=== PATIENT | female | born 1950 | race Two or more races ===

== ENCOUNTER 2016-02-09 17:30 | Emergency (ER) | payer OTHER ==
[2016-02-09 17:34] VITALS: RESP 16; TEMP 98.2
--- NOTE | 2016-02-09 18:20 | EDPHY ---
H & P Stated Complaint: CP since Time Seen by Provider: 02/09/16 18:19 - Personal History Current Tetanus/Diphtheria Vaccine: Yes Current Tetanus Diphtheria and Acellular Pertussis (TDAP): Yes Tetanus Vaccine Date: 2009 - Medical/Surgical History Hx Asthma: No Hx Chronic Respiratory Disease: No Hx Diabetes: No Hx Cardiac Disease: Yes Hx Renal Disease: No Hx Cirrhosis: No Hx Alcoholism: No Hx HIV/AIDS: No Hx Splenectomy or Spleen Trauma: No Other PMH: Afib, ablation, pacemaker, CHF, HTN, hysterectomy, cholecystectomy, manerse disease, hearing lose on both ears, migraines, fibgra maglia, - Social History Smoking Status: Never smoked Constitutional: Initial Vital Signs Temperature (C) 36.8 C 02/09/16 17:32 Heart Rate 91 02/09/16 17:32 Respiratory Rate 16 02/09/16 17:32 Blood Pressure 152/81 H 02/09/16 17:32 O2 Sat (%) 90 L 02/09/16 17:32 O2 Delivery Mode Room Air O2 (L/minute) 2 Allergies/Adverse Reactions: No Allergies [NKDA] Allergy (Unknown, Verified 09/04/14 22:17) Unknown Home Medications: Medication Instructions Recorded Aspirin [Aspirin 81mg (*)] 81 mg PO DAILY 09/05/14 Ergocalciferol [Vitamin D2 (*)] 50,000 unit PO SA 09/05/14 Hydrochlorothiazide [HCTZ (*)] 25 mg PO DAILY@09/05/14 Irbesartan [Avapro 300 mg] 300 mg PO DAILY@09/05/14 Nebivolol HCl [Bystolic] 10 mg PO BID 09/05/14 Naproxen 250 mg PO BID #60 tablet 09/07/14 Medical Decision Making ED Course/Re-evaluation: CHIEF COMPLAINT: Chest pain. HISTORY OF PRESENT ILLNESS: The patient is a 66-year-old female with an extensive cardiac history who presents with worsening central chest pain since . The pain is described as an achy pressure. It does not radiate and is worsened with movement. She admits associated lightheadedness. She denies cough, vomiting, nausea, diaphoresis, shortness of breath, or other complaints. REVIEW OF SYSTEMS: A 10 point review of systems was performed and is negative with the exception of the elements mentioned in the history of present illness. PHYSICAL EXAM: HR, BP, O2 Sat, RR. Temp noted General Appearance: Alert, well hydrated, appropriate, and non-toxic appearing. Head: Atraumatic without scalp tenderness or obvious injury Eyes: Pupils equal, round, reactive to light and accommodation, EOMI, no trauma , no injection. Ears: Clear bilaterally, no perforation, normal landmarks Nose: Atraumatic, no rhinorrhea, clear. Throat: There is no erythema or exudates, no lesions, normal tonsils, mucus membranes moist. Neck: Supple, 2+ carotid upstroke, nontender, no lymphadenopathy. Respiratory: No retractions, no distress, no wheezes, and no accessory muscle use. Lungs are clear to auscultation bilaterally. Cardiovascular: Regular rate and rhythm, no murmurs, rubs, or gallops. Bilateral carotid, radial, dorsalis pedis, and posterior tibial pulses intact. Good capillary refill all extremities. Gastrointestinal: Abdomen is soft, nontender, non-distended, no masses, no rebound, no guarding, no peritoneal signs. Musculoskeletal: Normal active ROM of all extremities, atraumatic. Neurological: Alert, appropriate, and interactive. The patient has normal DTRs and non-focal cranial nerves, motor, sensory, and cerebellar exam. Skin: No rashes, good turgor, no nodules on palpation. Past medical history:Atrial fibrillation and ablation, pacemaker, CHF. Past surgical history:Catheterization. Family history:Non-contributory. Social history:Here alone. DIAGNOSTICS/PROCEDURES/CRITICAL CARE TIME: Study: PA and Lateral Chest X-ray Indication: Chest pain Results: I viewed the images myself on the PACS system. My interpretation of the images is: No acute cardiopulmonary process. Pacemaker in place. The radiologist interpretation is pending at the time of this dictation. Study: CT of the chest. Indication: Pain, elevated d-dimer. Results: No PE. I viewed the images myself on the PACS system. DIFFERENTIAL DIAGNOSIS: The differential diagnosis for the patient's chest pain included but was not limited to myocardial ischemia, pulmonary embolus, chest wall pain, pleural inflammation, and pulmonary infectious causes. MEDICAL DECISION MAKING: This is a 66-year-old female with a long cardiac history presenting with 9 days of constant, central chest pressure. The pain is non-radiating and she appears to be otherwise asymptomatic but did feel lightheaded today. An IV was established and labs ordered. Chest x-ray and EKG ordered. 1L IV saline administered for hydration. 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 Her troponin is negative. I believe she has low risk factors for cardiac disease. Her D-dimer is elevated at 0.[address] has been ordered to rule out pulmonary embolism. 2030: Patient's CT is negative for pulmonary embolism. She will be discharged home to follow up with her histology tech Dr. Sanches. I discussed this with her at this time. She is comfortable with the plan. She was given return precautions and warnings prior to leaving. - Data Points Laboratory Results: Laboratory Results 02/09/16 18:27 02/09/16 18:27 02/09/16 02/09/16 02/09/16 18:41 18:36 18:27 WBC 4.70 10^3/uL (3.80-9.50) RBC 4.98 10^6/uL (4.18-5.33) Hgb 15.4 g/dL (12.6-16.3) Hct 45.2 % (38.0-47.0) MCV 90.8 fL (81.5-99.8) MCH 30.9 pg (27.9-34.1) MCHC 34.1 g/dL (32.4-36.7) RDW 13.1 % (11.5-15.2) Plt Count 156 10^3/uL (150-400) MPV 9.5 fL (8.7-11.7) Neut % (Auto) 55.7 % (39.3-74.2) Lymph % (Auto) 34.5 % (15.0-45.0) [place] % (Auto) 8.3 % (4.5-13.0) Eos % (Auto) 0.9 % (0.6-7.6) Baso % (Auto) 0.4 % (0.3-1.7) Nucleat RBC Rel Count 0.0 % (0.0-0.2) Absolute Neuts (auto) 2.62 10^3/uL (1.70-6.50) Absolute Lymphs (auto) 1.62 10^3/uL (1.00-3.00) Absolute Monos (auto) 0.39 10^3/uL (0.30-0.80) Absolute Eos (auto) 0.04 10^3/uL (0.03-0.40) Absolute Basos (auto) 0.02 10^3/uL (0.02-0.10) Absolute Nucleated RBC 0.00 10^3/uL (0-0.01) Immature Gran % 0.2 % (0.0-1.1) Immature Gran # 0.01 10^3/uL (0.00-0.10) PT 12.8 SEC (12.0-15.0) INR 0.97 (0.83-1.16) APTT 26.1 SEC (23.0-38.0) D-Dimer 0.97 H ug/mLFEU (0.00-0.50) Sodium 146 H mEq/L (134-144) Potassium 3.8 mEq/L (3.5-5.2) Chloride 108 mEq/L (97-110) Carbon Dioxide 26 mEq/l (22-31) Anion Gap 12 mEq/L (8-16) BUN 10 mg/dL (7-23) Creatinine 0.7 mg/dL (0.6-1.0) Estimated GFR > 60 Glucose 98 mg/dL (70-100) Calcium 9.1 mg/dL (8.5-10.4) Troponin I < 0.012 ng/mL (0-0.034) NT-Pro-B Natriuret Pep 73 pg/mL (0-125) Medications Given: Discontinued Medications Sodium Chloride (Ns) 1,000 mls @ 0 mls/hr IV ONCE ONE PRN Reason: Wide Open Stop: 02/09/16 18:33 Last Admin: 02/09/16 18:51 Dose: 1,000 mls Departure - Departure Disposition: Home, Routine, Self-Care Clinical Impression: Chest pain Qualifiers: Chest pain type: unspecified Qualifier Code: (R07.9) Chest pain, unspecified Condition: Good Instructions: Chest Pain (ED) Additional Instructions: Call Dr. Sanches, cardiology, tomorrow to set up a follow up appointment. Return to the emergency department if you experience serious worsening of condition. Referrals: Ronen Anderson DO [Primary Care Provider] - As per Instructions Wali Sanches MD [Medical Doctor] - As per Instructions Report Scribed for: Duc Law Report Scribed by: Tanner Villafuerte Date of Report: 02/09/16 Time of Report: 18:30
--- NOTE | 2016-02-09 18:24 | CPEKG ---
Heart Rate: 85 RR Interval: 706 P-R Interval: 148 QRSD Interval: 88 QT Interval: 392 QTC Interval: 467 P Forsan: 45 QRS Forsan: -9 T Wave Forsan: 33 EKG Severity - ABNORMAL ECG - EKG Impression: SINUS RHYTHM EKG Impression: LVH WITH SECONDARY REPOLARIZATION ABNORMALITY Electronically Signed By: Duc Law 09-Feb-2016 21:18:04
[2016-02-09] MEDS ORDERED: NS 1,000 ML IV ONE (18:32)
[2016-02-09 18:34] LABS: % IMMATURE GRANULYOCYTES 0.2 % (0.0-1.1); ABSOLUTE IMMATURE GRANULOCYTES 0.01 10^3/uL (0.00-0.10); ADD DIFF? NO; ADD MORPH? NO; ADD SCAN? NO; ATYPICAL LYMPHOCYTE FLAG 10 (0-99); FRAGMENT RBC FLAG 0 (0-99); HEMATOCRIT 45.2 % (38.0-47.0); HEMOGLOBIN 15.4 g/dL (12.6-16.3); LEFT SHIFT FLG 0 (0-99); LIPEMIA HEMOLYSIS FLAG 90 (0-99); MEAN CELL HEMOGLOBIN 30.9 pg (27.9-34.1); MEAN CELL HEMOGLOBIN CONCENTR. 34.1 g/dL (32.4-36.7); MEAN CELL VOLUME 90.8 fL (81.5-99.8); MEAN PLATELET VOLUME 9.5 fL (8.7-11.7); PLATELET CLUMPS FLAG 10 (0-99); PLATELET COUNT 156 10^3/uL (150-400); RED BLOOD CELL COUNT 4.98 10^6/uL (4.18-5.33); RED CELL DISTRIBUTION WIDTH 13.1 % (11.5-15.2)
[2016-02-09 18:48] LABS: INR 0.97 (0.83-1.16); PROTIME(PATIENT) 12.8 SEC (12.0-15.0)
[2016-02-09 18:49] LABS: APTT 26.1 SEC (23.0-38.0)
[2016-02-09 18:50] LABS: ANION GAP 12 mEq/L (8-16); CALCIUM 9.1 mg/dL (8.5-10.4); CARBON DIOXIDE 26 mEq/l (22-31); CHLORIDE 108 mEq/L (97-110); CREATININE 0.7 mg/dL (0.6-1.0); GLOMERULAR FILTRATION RATE > 60; GLUCOSE 98 mg/dL (70-100); POTASSIUM 3.8 mEq/L (3.5-5.2); SODIUM 146 mEq/L (134-144)
[2016-02-09 19:01] LABS: TROPONIN I < 0.012 ng/mL (0-0.034)
[2016-02-09] MEDS ORDERED: IOPAMIDOL (ISOVUE 370) 100 ML BTL IV ONE (19:19)
--- NOTE | 2016-02-09 19:48 | DX ---
PA lateral chest x-ray 1816 hours. History: Persistent chest pain. History for fibrillation. Findings: Comparison to September 04, 2014. Heart size is upper limits of normal. Pulmonary vasculature is not significantly engorged. Dual-lead pacemaker unit remains in place. The lungs are clear without consolidation, effusion, or pneumothorax . Degenerative changes are noted mid thoracic spine. Impression: 1. No active cardio pulmonary disease seen.
--- NOTE | 2016-02-09 20:16 | CT ---
CT Pulmonary Angiogram 1951 hours Clinical Indications: Intermittent chest pain for several months more severe in the last week. Shortn ess of breath. Dyspnea. Rule out pulmonary embolus. Technique: Thinly collimated multidetector helical CT imaging was performed through the chest while 90 mL Isovue-370 were injected intravenously without complication. The images were reconstructed in multiple planes. Dose reduction techniques were utilized. Findings: Comparison to prior CT coronary study from September 06, 2014. CT Angiogram: There is no evidence of intraluminal thrombus within the pulmonary arterial system. Th e thoracic aorta has a normal contour without evidence of aneurysm or dissection. There is no perica rdial effusion. The cardiac chambers are mildly enlarged. Pacemaker unit and leads are in position. CT Chest: The lungs are clear without infiltrate or effusion. There is mild dependent atelectasis at the lung bases posteriorly. There are no pulmonary nodules. Soft tissues are unremarkable. The visu alized upper abdominal structures are unremarkable during arterial phase of imaging. Skeletal system: Vertebral body heights are well-maintained. There are no lytic or sclerotic osseous lesions. Impression: 1. No evidence of pulmonary embolus using CT protocol. 2. Stable mild cardiomegaly. These findings were discussed by telephone with Dr. Duc Law at 2014 hrs.
[2016-02-09 21:03] VITALS: BP 128/74; PULSE 74; O2SAT 94
== END 2016-02-09 21:08 | disposition home or self-care (01) ==
DX: R07.9 Chest pain, unspecified (principal); I10 Essential (primary) hypertension; I50.9 Heart failure, unspecified; Z79.82 Long term (current) use of aspirin; Z95.0 Presence of cardiac pacemaker
CPT/HCPCS: 71020; 71275; 93005; 96360; 99285; Q9967

== ENCOUNTER 2016-07-12 14:23 | Observation (INO) | payer OTHER ==
--- NOTE | 2016-07-12 14:54 | CPEKG ---
Heart Rate: 88 RR Interval: 682 P-R Interval: 164 QRSD Interval: 84 QT Interval: 368 QTC Interval: 446 QRS [place]stone: -13 T Wave Melstone: 46 EKG Severity - ABNORMAL ECG - EKG Impression: ATRIAL-PACED RHYTHM EKG Impression: LEFT VENTRICULAR HYPERTROPHY Electronically Signed By: Patty Sanford 12-Jul-2016 17:01:24
[2016-07-12 15:02] LABS: % IMMATURE GRANULYOCYTES 0.2 % (0.0-1.1); ABSOLUTE IMMATURE GRANULOCYTES 0.01 10^3/uL (0.00-0.10); ADD DIFF? NO; ADD MORPH? NO; ADD SCAN? NO; ATYPICAL LYMPHOCYTE FLAG 0 (0-99); FRAGMENT RBC FLAG 0 (0-99); HEMATOCRIT 46.3 % (38.0-47.0); HEMOGLOBIN 15.8 g/dL (12.6-16.3); LEFT SHIFT FLG 0 (0-99); LIPEMIA HEMOLYSIS FLAG 90 (0-99); MEAN CELL HEMOGLOBIN 30.9 pg (27.9-34.1); MEAN CELL HEMOGLOBIN CONCENTR. 34.1 g/dL (32.4-36.7); MEAN CELL VOLUME 90.6 fL (81.5-99.8); MEAN PLATELET VOLUME 9.4 fL (8.7-11.7); PLATELET CLUMPS FLAG 0 (0-99); PLATELET COUNT 140 10^3/uL (150-400); RED BLOOD CELL COUNT 5.11 10^6/uL (4.18-5.33); RED CELL DISTRIBUTION WIDTH 12.8 % (11.5-15.2)
--- NOTE | 2016-07-12 15:02 | EDPHY ---
H & P Time Seen by Provider: 07/12/16 14:55 HPI/ROS: Chief complaint. Chest pain HPI. Patient is a 66-year-old female presents with tightness in her chest off and on for 1 week. It is described as tightness and pressure with radiation to her left shoulder. Today she went for a walk in her chest discomfort was worse with exertion and better when she sat down and rested. She also has some shortness of breath and nausea with this. 2 weeks ago she had a headache and neck pain and feels that she has had left arm and leg weakness for 2 weeks. She has had no recent fever or cough. No unusual leg pain or swelling. She does not take aspirin daily. ROS Constitutional. no fever/chills, no weakness Eyes. no problems with vision ENT. no sore throat, no nasal drainage Cardiovascular. Exertional chest discomfort Respiratory. Dyspnea on exertion without cough Abdominal. no abdominal pain, no nausea/vomiting, no diarrhea . no problems urinating MS. no calf pain/swelling, no neck/back pain, no joint pain Skin. no rash Lymph. no swollen glands Neuro. Left arm and leg weakness for 2 weeks Past Medical/Surgical History: Past medical history significant for atrial fibrillation with ablation, pacemaker, congestive heart failure, hypertension, hysterectomy, cholecystectomy , Meniere's disease, fibromyalgia Social History: Single, nonsmoker, no alcohol Smoking Status: Never smoked Physical Exam: General Appearance: Alert well-developed female mild distress vital signs are stable Eyes: Pupils equal and round no pallor or injection. ENT, Mouth: Mucous membranes are moist. Respiratory: There are no retractions, lungs are clear to auscultation. Cardiovascular: Regular rate and rhythm. Gastrointestinal: Abdomen is soft and nontender, no masses, bowel sounds normal. Neurological: Awake and alert, sensory and motor exams grossly normal. Cranial nerves are normal. Speech is normal. There is no pronator drift. Finger-to- nose and [id number] are normal bilaterally Skin: Warm and dry, no rashes. Musculoskeletal: Neck is supple nontender. Extremities symmetrical, full range of motion. Psychiatric: Patient is oriented X 3, there is no agitation. Constitutional: Initial Vital Signs Temperature (C) 36.4 C 07/12/16 14:35 Heart Rate 91 07/12/16 14:35 Respiratory Rate 16 07/12/16 14:35 Blood Pressure 152/79 H 06/05/17 14:35 O2 Sat (%) 94 07/12/16 14:35 O2 Delivery Mode Room Air Allergies/Adverse Reactions: No Allergies [NKDA] Allergy (Unknown, Verified 09/04/14 22:17) Unknown Home Medications: Medication Instructions Recorded Aspirin [Aspirin 81mg (*)] 81 mg PO DAILY 09/05/14 Ergocalciferol [Vitamin D2 (*)] 50,000 unit PO SA 09/05/14 Hydrochlorothiazide [HCTZ (*)] 25 mg PO DAILY@09/05/14 Irbesartan [Avapro 300 mg] 300 mg PO DAILY@09/05/14 Nebivolol HCl [Bystolic] 10 mg PO BID 09/05/14 Naproxen 250 mg PO BID #60 tablet 09/07/14 Medical Decision Making - Diagnostics EKG Interpretation: EKG interpreted by me shows paced rhythm with normal intervals. There is left axis deviation. LVH by voltage. QRS otherwise normal. No significant ST elevation or depression. No arrhythmia. Rate is 88 No change from previous EKG in February 2016 Imaging Results: Imaging Impressions Chest X-Ray 07/12/16 14:52 Impression: Stable and negative. Head CT 07/12/16 15:25 Impression: 1. No acute intracranial findings. If symptoms persist and clinical suspicion warrants, consider MRI. 2. Diffuse cerebral atrophy with periventricular and subcortical low attenuation consistent with chronic microvascular ischemic gliosis. Findings discussed with Dr. Vish Padilla on July 12, [address] head reviewed by me and discussed with Dr. Johnson shows no acute stroke or bleeding One-view chest x-ray interpreted by me as nonacute Procedures: IV normal saline, monitor. Aspirin in the emergency department ED Course/Re-evaluation: On re-evaluation patient is stable. The patient and I discussed imaging and lab results. We discussed treatment plan including recommendation for admission and further evaluation. The patient expresses understanding and agreement I consulted and discussed the case with Dr. Wood, hospitalist, who agrees to the admission Differential Diagnosis: I have considered acute coronary syndrome, CVA and intracranial bleeding. - Data Points Laboratory Results: Laboratory Results 07/12/16 14:54 07/12/16 14:54 07/12/16 07/12/16 14:54 14:54 WBC 4.96 10^3/uL 10^3/uL (3.80-9.50) RBC 5.11 10^6/uL 10^6/uL (4.18-5.33) Hgb 15.8 g/dL g/dL (12.6-16.3) Hct 46.3 % % (38.0-47.0) MCV 90.6 fL fL (81.5-99.8) MCH 30.9 pg pg (27.9-34.1) MCHC 34.1 g/dL g/dL (32.4-36.7) RDW 12.8 % % (11.5-15.2) Plt Count 140 10^3/uL L 10^3/uL (150-400) MPV 9.4 fL fL (8.7-11.7) Neut % (Auto) 57.0 % % (39.3-74.2) Lymph % (Auto) 32.5 % % (15.0-45.0) [place] % (Auto) 9.1 % % (4.5-13.0) Eos % (Auto) 0.8 % % (0.6-7.6) Baso % (Auto) 0.4 % % (0.3-1.7) Nucleat RBC Rel Count 0.0 % % (0.0-0.2) Absolute Neuts (auto) 2.83 10^3/uL 10^3/uL (1.70-6.50) Absolute Lymphs (auto) 1.61 10^3/uL 10^3/uL (1.00-3.00) Absolute Monos (auto) 0.45 10^3/uL 10^3/uL (0.30-0.80) Absolute Eos (auto) 0.04 10^3/uL 10^3/uL (0.03-0.40) Absolute Basos (auto) 0.02 10^3/uL 10^3/uL (0.02-0.10) Absolute Nucleated RBC 0.00 10^3/uL 10^3/uL (0-0.01) Immature Gran % 0.2 % % (0.0-1.1) Immature Gran # 0.01 10^3/uL 10^3/uL (0.00-0.10) Sodium 143 mEq/L mEq/L (134-144) Potassium 3.9 mEq/L mEq/L (3.5-5.2) Chloride 106 mEq/L mEq/L (97-110) Carbon Dioxide 27 mEq/l mEq/l (22-31) Anion Gap 10 mEq/L mEq/L (8-16) BUN 17 mg/dL mg/dL (7-23) Creatinine 0.7 mg/dL mg/dL (0.6-1.0) Estimated GFR > 60 Glucose 97 mg/dL mg/dL (70-100) Calcium 9.5 mg/dL mg/dL (8.5-10.4) Troponin I < 0.012 ng/mL ng/mL (0-0.034) Medications Given: Discontinued Medications Aspirin (Aspirin) 324 mg PO EDNOW ONE Stop: 07/12/16 16:15 Last Admin: 07/12/16 16:20 Dose: 324 mg Departure - Departure Disposition: [facility] Acute Clinical Impression: Chest pain Qualifiers: Chest pain type: unspecified Qualified Code(s): R07.9 - Chest pain, unspecified Condition: Good
[2016-07-12 15:19] LABS: ANION GAP 10 mEq/L (8-16); CALCIUM 9.5 mg/dL (8.5-10.4); CARBON DIOXIDE 27 mEq/l (22-31); CHLORIDE 106 mEq/L (97-110); CREATININE 0.7 mg/dL (0.6-1.0); GLOMERULAR FILTRATION RATE > 60; GLUCOSE 97 mg/dL (70-100); POTASSIUM 3.9 mEq/L (3.5-5.2); SODIUM 143 mEq/L (134-144)
[2016-07-12 15:29] LABS: TROPONIN I < 0.012 ng/mL (0-0.034)
[2016-07-12] MEDS ORDERED: ASPIRIN 81 MG CHEWABLE TAB PO ONE (16:14)
[2016-07-12] MEDS ORDERED: ONDANSETRON 4 MG/2 ML VIAL IVP PRN (17:05)
[2016-07-12] MEDS ORDERED: ONDANSETRON DISINTEGRATING 4 MG TAB PO PRN (17:05)
[2016-07-12] MEDS ORDERED: HYDROCODONE/APAP 10/325 TAB PO PRN (17:08)
[2016-07-12] MEDS ORDERED: ALPRAZolam 0.5 MG TAB PO PRN (17:08)
[2016-07-12] MEDS ORDERED: HYDROCHLOROTHIAZIDE 25 MG TAB PO PRN (17:08)
--- NOTE | 2016-07-12 17:13 | PDGENHP ---
History and Physical - Chief Complaint Acute chest pain - History of Present Illness PCP: Dr. Anderson Cards: Dr. Sanches Pulm: Dr. Treviño HPI: 66 yo F p/w acute chest pain characterized as chest tightness located across entire anterior chest, radiating into left jaw w/ assoc shortness of breath which is exacerbated by speaking, alleviated by resting. Onset of symptoms approx 1 week ago, duration intermittent, notable today when patient was on phone w/ relative. She has not taken any Rx to alleviate, has not had any recent Rx changes. She reports character is different from chest discomfort occurring in 02/23 and 2014. She was recently seen by her polymer materials consultant, and no further intervention was performed. History Information - Allergies/Home Medication List Allergies/Adverse Reactions: No Allergies [NKDA] Allergy (Unknown, Verified 09/04/14 22:17) Unknown Home Medications: ALPRAZolam [Xanax 0.5 MG (*)] 0.5 - 1 mg PO DAILY PRN 07/12/16 [Last Taken Unknown] HYDROcodone/APAP 10/325 [[place] 10/325 (*)] 1 tab PO Q6 PRN 07/12/16 [Last Taken Unknown] Hydrochlorothiazide [HCTZ (*)] 25 mg PO DAILY PRN 07/12/16 [Last Taken Unknown] Irbesartan [Avapro 300 mg] 300 mg PO DAILY 07/12/16 [Last Taken 07/12/16] oxyCODONE HCL [Oxycontin] 20 mg PO Q12H PRN 07/12/16 [Last Taken Unknown] I have personally reviewed and updated: family history, medical history, social history, surgical history - Past Medical History atrial fibrillation (w/ ablation), fibromyalgia, GERD (atypical chest pain 2014) Additional medical history: SHONDA. chronic pain w/ continuous opiate dependency. anxiety - Surgical History Additional surgical history: PPM - Family History Additional family history: no fam hx of Afib or VTE - Social History Smoking Status: Never smoked Alcohol Use: None Drug Use: None Additional social history: independent in ADLs Review of Systems ROS: 10pt was reviewed & negative except for what was stated in HPI & below Cardiac: Reports: chest pain Respiratory: Reports: shortness of breath Physical Exam Temp Pulse Resp BP Pulse Ox 36.4 C 79 18 168/87 H 97 07/12/16 14:35 07/12/16 16:00 07/12/16 16:00 07/12/16 16:00 07/12/16 16:00 Constitutional: no apparent distress, appears nourished, not in pain Eyes: PERRL, anicteric sclera, EOMI Ears, Nose, Mouth, Throat: moist mucous membranes, hearing normal, ears appear normal, no oral mucosal ulcers Cardiovascular: regular rate and rhythym, no murmur, rub, or gallop, No irregularly irregular, No edema Respiratory: no respiratory distress, no rales or rhonchi, clear to auscultation Gastrointestinal: normoactive bowel sounds, soft, non-tender abdomen, no palpable masses Genitourinary: no bladder fullness, no bladder tenderness Musculoskeletal: other (full ROM L shoulder w/o pain, no tenderness over L sub- ac, no anterior chest wall tenderness) Neurologic: AAOx3, No weakness (motor 5/5 bilat) Psychiatric: interacting appropriately, not encephalopathic, thought process linear, anxious, No agitated Lab Data & Imaging Review 07/12/16 14:54 07/12/16 14:54 WBC 4.96 10^3/uL (3.80-9.50) 07/12/16 14:54 RBC 5.11 10^6/uL (4.18-5.33) 07/12/16 14:54 Hgb 15.8 g/dL (12.6-16.3) 07/12/16 14:54 Hct 46.3 % (38.0-47.0) 07/12/16 14:54 MCV 90.6 fL (81.5-99.8) 07/12/16 14:54 MCH 30.9 pg (27.9-34.1) 07/12/16 14:54 MCHC 34.1 g/dL (32.4-36.7) 07/12/16 14:54 RDW 12.8 % (11.5-15.2) 07/12/16 14:54 Plt Count 140 10^3/uL (150-400) L 07/12/16 14:54 MPV 9.4 fL (8.7-11.7) 07/12/16 14:54 Neut % (Auto) 57.0 % (39.3-74.2) 07/12/16 14:54 Lymph % (Auto) 32.5 % (15.0-45.0) 07/12/16 14:54 [place] % (Auto) 9.1 % (4.5-13.0) 07/12/16 14:54 Eos % (Auto) 0.8 % (0.6-7.6) 07/12/16 14:54 Baso % (Auto) 0.4 % (0.3-1.7) 07/12/16 14:54 Nucleat RBC Rel Count 0.0 % (0.0-0.2) 07/12/16 14:54 Absolute Neuts (auto) 2.83 10^3/uL (1.70-6.50) 07/12/16 14:54 Absolute Lymphs (auto) 1.61 10^3/uL (1.00-3.00) 07/12/16 14:54 Absolute Monos (auto) 0.45 10^3/uL (0.30-0.80) 07/12/16 14:54 Absolute Eos (auto) 0.04 10^3/uL (0.03-0.40) 07/12/16 14:54 Absolute Basos (auto) 0.02 10^3/uL (0.02-0.10) 07/12/16 14:54 Absolute Nucleated RBC 0.00 10^3/uL (0-0.01) 07/12/16 14:54 Immature Gran % 0.2 % (0.0-1.1) 07/12/16 14:54 Immature Gran # 0.01 10^3/uL (0.00-0.10) 07/12/16 14:54 Sodium 143 mEq/L (134-144) 07/12/16 14:54 Potassium 3.9 mEq/L (3.5-5.2) 07/12/16 14:54 Chloride 106 mEq/L (97-110) 07/12/16 14:54 Carbon Dioxide 27 mEq/l (22-31) 07/12/16 14:54 Anion Gap 10 mEq/L (8-16) 07/12/16 14:54 BUN 17 mg/dL (7-23) 07/12/16 14:54 Creatinine 0.7 mg/dL (0.6-1.0) 07/12/16 14:54 Estimated GFR > 60 07/12/16 14:54 Glucose 97 mg/dL (70-100) 07/12/16 14:54 Calcium 9.5 mg/dL (8.5-10.4) 07/12/16 14:54 Troponin I < 0.012 ng/mL (0-0.034) 07/12/16 14:54 Visualized and Interpreted Chest x-ray results: Yes Chest X-Ray results: no infiltrate Visualized and Interpreted EKG results: Yes EKG Interpretation: Positive for: other (Apaced) Assessment & Plan Assessment: 66 yo F p/w acute chest pain Plan: 1. Chest pain. Acute, new problem, further w/u. Suspect atypical w/ hx of atypical and review of outside records (09/07/[address] Kathie Gross) describe prior episode as atypical w/ indeterminant stress and negative cath, discharged on GERD Rx, no longer taking regularly - that said, she is at risk of obstructive CAD and character described as different, radiating into left jaw and w/ SOB - cycle cardiac enzymes - d/w Dr. Lee, he will address best modality of risk stratification in AM, make NPO at that time - check dimer - get ppm interrogation - give PPI/maalox/tums, then SLN if no response 2. Chronic pain w/ continuous opiate dependency. W/ additional anxiety component , cont home Rx, suspect overlay 3. Afib. Paced, get interrogation Diet. Cardiac, then NPO PPx. High risk, lovenox 40 Code. Full, daughter Vannesa MDPOA Dispo. ADD 07/13, pending further w/u above.
[2016-07-12] MEDS ORDERED: MBX SOLN 30 ML BOTTLE PO PRN (17:18)
[2016-07-12] MEDS ORDERED: CALCIUM CARBONATE 500 MG CHEWABLE TAB PO PRN (17:18)
[2016-07-12] MEDS: PANTOPRAZOLE SODIUM 40 MG TAB PO SCH (18:17)
[2016-07-13] MEDS ORDERED: ALPRAZolam 1 MG TAB PO PRN (00:57)
[2016-07-13] MEDS: ACETAMINOPHEN 325 MG TAB PO PRN ×2 (01:02→10:47)
[2016-07-13 05:40] LABS: % IMMATURE GRANULYOCYTES 0.2 % (0.0-1.1); ABSOLUTE IMMATURE GRANULOCYTES 0.01 10^3/uL (0.00-0.10); ADD DIFF? NO; ADD MORPH? NO; ADD SCAN? NO; ATYPICAL LYMPHOCYTE FLAG 10 (0-99); FRAGMENT RBC FLAG 0 (0-99); HEMATOCRIT 42.7 % (38.0-47.0); HEMOGLOBIN 14.3 g/dL (12.6-16.3); LEFT SHIFT FLG 0 (0-99); LIPEMIA HEMOLYSIS FLAG 80 (0-99); MEAN CELL HEMOGLOBIN 30.4 pg (27.9-34.1); MEAN CELL HEMOGLOBIN CONCENTR. 33.5 g/dL (32.4-36.7); MEAN CELL VOLUME 90.9 fL (81.5-99.8); PLATELET CLUMPS FLAG 0 (0-99); PLATELET COUNT 137 10^3/uL (150-400); RED CELL DISTRIBUTION WIDTH 12.8 % (11.5-15.2)
[2016-07-13 05:57] LABS: ANION GAP 6 mEq/L (8-16); CALCIUM 8.8 mg/dL (8.5-10.4); CARBON DIOXIDE 25 mEq/l (22-31); CHLORIDE 109 mEq/L (97-110); CREATININE 0.6 mg/dL (0.6-1.0); GLOMERULAR FILTRATION RATE > 60; GLUCOSE 92 mg/dL (70-100); POTASSIUM 4.1 mEq/L (3.5-5.2); SODIUM 140 mEq/L (134-144)
[2016-07-13 06:04] LABS: TROPONIN I < 0.012 ng/mL (0-0.034)
[2016-07-13] MEDS ORDERED: IOPAMIDOL (ISOVUE 370) 100 ML BTL IV ONE ×2 (08:51→10:55)
[2016-07-13] MEDS ORDERED: ENOXAPARIN 40 MG/0.4 ML SYR SC SCH (09:00)
[2016-07-13] MEDS ORDERED: IRBESARTAN 150 MG TAB PO SCH (09:00)
[2016-07-13] MEDS ORDERED: NON-FORMULARY NEW DRUG (Irbesartan [Avapro 300 Mg] 300 MG) PO SCH (09:00)
[2016-07-13] MEDS: PANTOPRAZOLE SODIUM 40 MG TAB PO SCH (10:35)
[2016-07-13 12:28] VITALS: BP 116/77; PULSE 75; RESP 16; TEMP 97.6; O2SAT 91
--- NOTE | 2016-07-13 13:33 | GDS ---
[f rep st] DISCHARGE SUMMARY FINAL DIAGNOSES: 1. Chest pain. 2. Fibromyalgia. 3. Chronic pain with continuous narcotic dependency. 4. Atrial fibrillation, status post pacemaker. HOSPITAL COURSE: This 66-year-old female presents with chest pain. D-dimer is elevated. Neck CT a ngiogram was negative. Her troponins have been negative. EKG showed atrial-paced rhythm with nothi ng acutely ischemic. She was seen by Cardiology, who reviewed her previous CT angiogram from 2014, felt very unlikely to be due to acute coronary occlusion. There is a question whether this could be microvascular disease. Cardiology has recommended starting her on low-dose Imdur. I have written her a prescription for this. No additional ischemic evaluation was desired or requested by Cardiolo gy. This seems reasonable. This may be due to her fibromyalgia syndrome as well. FOLLOWUP: Dr. Sanches in a few weeks, or somebody else in his office to follow up her tolerance of I mdur. CONDITION ON DISCHARGE: She is discharged in stable condition. /[id number]/MODL
--- NOTE | 2016-07-13 22:52 | PDCARPN ---
Cardiology Progress Note Assessment/Plan: 07/13/16 22:52 Subjective: No CV complaints. Objective: Intake/Output (24 Hrs) 07/12/16 07/13/16 07/14/16 05:59 05:59 05:59 Intake Total 300 Balance 300 Intake: Oral (ml) 300 Other: Weight 78.1 kg Intake Quantity Yes Sufficient Number of Voids Toilet 2 3 Result Diagrams: 07/13/16 05:25 07/13/16 05:25 Cardiac Labs: Cardiac Lab Results (72 Hrs) 07/13/16 07/12/16 05:25 21:19 Troponin I < 0.012 < 0.012 ICD10 Worksheet Patient Problems: Problems Problem Status Onset Chest pain Acute
--- NOTE | 2016-07-13 23:02 | PDCARPN ---
Cardiology Progress Note Assessment/Plan: Late Entry (patient seen at 12:00 pm today) 66-year-old female with a history of atypical chest pain, fibromyalgia, hypertension, and sick sinus syndrome with prior pacemaker implantation. Admitted for constant chest discomfort over the past week. Serial troponin levels were normal. Cardiac catheterization in September of 2014 demonstrated completely angiographically normal coronary arteries. Symptoms do not suggest pericarditis, PE, or GI source. Previous symptoms were attributed to gastroesophageal reflux but these are different. Would not pursue provocative testing with ETT or pharmacologic nuclear stress test. Okay for discharge today. Empiric trial of isosorbide mononitrate 30 mg daily for potential microvascular angina. Will have the office staff of [facility] contact her to arrange followup in the near future. 07/13/16 23:01 Subjective: No chest pain or dyspnea. Objective: Intake/Output (24 Hrs) 07/12/16 07/13/16 07/14/16 05:59 05:59 05:59 Intake Total 300 Balance 300 Intake: Oral (ml) 300 Other: Weight 78.1 kg Intake Quantity Yes Sufficient Number of Voids Toilet 2 3 Result Diagrams: 07/13/16 05:25 07/13/16 05:25 Cardiac Labs: Cardiac Lab Results (72 Hrs) 07/13/16 07/12/16 05:25 21:19 Troponin I < 0.012 < 0.012 ICD10 Worksheet Patient Problems: Problems Problem Status Onset Chest pain Acute
== END 2016-07-13 14:39 | disposition home or self-care (01) ==
LOC: INTOOBSV 16:29 → F2W 17:55
PROVIDERS: ADMIT Internal Medicine; ATTEND Internal Medicine
DX: R07.9 Chest pain, unspecified (principal); M79.7 Fibromyalgia; G89.29 Other chronic pain; I48.91 Unspecified atrial fibrillation; I10 Essential (primary) hypertension; F11.20 Opioid dependence, uncomplicated; Z95.0 Presence of cardiac pacemaker
CPT/HCPCS: 70450; 71010; 71275; 93005; G0378; J1650; Q9967

== ENCOUNTER 2016-10-04 07:43 | Day surgery (SDC) | payer OTHER ==
[2016-10-04] MEDS ORDERED: BACITRACIN IRRIGATION/NS 50,000 UNITS/1,000 ML BTL IRR ONE (07:44)
[2016-10-04] MEDS ORDERED: NS 1,000 ML IV ONE (07:44)
[2016-10-04] MEDS ORDERED: diphenhydrAMINE 25 MG CAP PO ONE ×2 (07:44→07:56)
[2016-10-04] MEDS ORDERED: ceFAZolin 2 GM/DEXTROSE 100 ML IV ONE (07:44)
[2016-10-04] MEDS ORDERED: DIAZEPAM 5 MG TAB PO ONE (07:44)
[2016-10-04] MEDS ORDERED: DIAZEPAM 5 MG TAB ONE (07:56)
--- NOTE | 2016-10-04 08:01 | CPEKG ---
Heart Rate: 69 RR Interval: 870 P-R Interval: 152 QRSD Interval: 90 QT Interval: 408 QTC Interval: 437 P Buford: 38 QRS Buford: -3 T Wave Buford: 46 EKG Severity - ABNORMAL ECG - EKG Impression: ATRIAL-SENSED VENTRICULAR-PACED COMPLEXES EKG Impression: BORDERLINE T ABNORMALITIES, ANT-LAT LEADS Electronically Signed By: Easton Poole 04-Oct-2016 10:24:42
[2016-10-04 08:14] LABS: % IMMATURE GRANULYOCYTES 0.2 % (0.0-1.1); ABSOLUTE IMMATURE GRANULOCYTES 0.01 10^3/uL (0.00-0.10); ADD DIFF? NO; ADD MORPH? NO; ADD SCAN? NO; ATYPICAL LYMPHOCYTE FLAG 10 (0-99); FRAGMENT RBC FLAG 0 (0-99); HEMATOCRIT 43.5 % (38.0-47.0); HEMOGLOBIN 14.7 g/dL (12.6-16.3); LEFT SHIFT FLG 0 (0-99); LIPEMIA HEMOLYSIS FLAG 90 (0-99); MEAN CELL HEMOGLOBIN CONCENTR. 33.8 g/dL (32.4-36.7); MEAN CELL VOLUME 91.8 fL (81.5-99.8); MEAN PLATELET VOLUME 9.8 fL (8.7-11.7); PLATELET CLUMPS FLAG 0 (0-99); PLATELET COUNT 153 10^3/uL (150-400); RED BLOOD CELL COUNT 4.74 10^6/uL (4.18-5.33); RED CELL DISTRIBUTION WIDTH 13.2 % (11.5-15.2)
[2016-10-04 08:30] LABS: ANION GAP 11 mEq/L (8-16); CALCIUM 9.3 mg/dL (8.5-10.4); CARBON DIOXIDE 26 mEq/l (22-31); CHLORIDE 106 mEq/L (97-110); CREATININE 0.7 mg/dL (0.6-1.0); GLOMERULAR FILTRATION RATE > 60; GLUCOSE 101 mg/dL (70-100); POTASSIUM 3.6 mEq/L (3.5-5.2); SODIUM 143 mEq/L (134-144)
[2016-10-04] MEDS ORDERED: fentaNYL 100 MCG/2 ML INJ ONE (08:43)
[2016-10-04] MEDS ORDERED: LIDOCAINE 1% 300 MG/30 ML SDV ONE (08:43)
[2016-10-04] MEDS ORDERED: LIDO/EPI 1% **for epidural** 30 ML SDV ONE (08:44)
[2016-10-04] MEDS ORDERED: BUPIVACAINE 0.5% 30 ML SDV ONE (08:44)
[2016-10-04] MEDS ORDERED: MIDAZOLAM 2 MG/2 ML VIAL ONE (08:44)
[2016-10-04 08:49] LABS: INR 0.99 (0.83-1.16)
--- NOTE | 2016-10-04 09:00 | PDHPUP ---
History & Physical Update H&P update statement: This history and physical update is based on an assessment of the patient which was completed after admission or registration (within 24 hours), but prior to the surgery/procedure. H&P update: H&P reviewed & patient examined, no change in patient's condition since H&P completed
--- NOTE | 2016-10-04 09:01 | PDPROPOC ---
Sedation Plan of Care Sedation Plan of Care: vital signs stable, mental status noted, patient educated of risks, benefits, alternatives, patient can tolerate sedation ASA Classification: ASA 3 Mallampati Score: Class 3 332 Rule: 332 (some false teeth)
--- NOTE | 2016-10-04 10:33 | POSTOPPROG ---
Post Op Note Date of Operation: 10/04/16 Surgeon: Wali Sanches Pre-op Diagnosis: sick sinus syndrome atrial fib Post-op Diagnosis: sick sinus syndrome atrial fib Indication: sick sinus syndrome atrial fib Procedure: pacemaker generator change Findings: battery depletion, pacer wire threshold Inf/Abcess present in the surg proc area at time of surgery?: No Depth: Superfical (Skin SQ) EBL: Minimal Complications: NONE Drains: Other (NONE)
--- NOTE | 2016-10-04 11:23 | CPIP ---
[f rep st] INVASIVE CARDIAC PROCEDURE DATE OF PROCEDURE: 10/04/2016 PROCEDURE PERFORMED: 1. Explant of a Biotronik Cylos DR pacemaker secondary to elective replacement indication and batte ry depletion, serial number [id number]. 2. Implantation of an Eluna 8 DR-T ProMRI device, model number [id number], serial number [id number]. It is a Biotronik device. COMPLICATIONS: None. ORIGINAL INDICATION FOR IMPLANTATION: Sick sinus syndrome, which was symptomatic, in a patient with intermittent paroxysmal atrial fibrillation as well as sinus arrest and pauses, causing near syncop e. CURRENT INDICATION: Elective replacement indication secondary to battery depletion. PROCEDURE IN DETAIL: After informed consent was obtained, n.p.o. status was confirmed, the region o f the left subclavicular fossa was cleaned, prepped, and draped in sterile fashion. Approximately 1 5 cc of 1% lidocaine was utilized for local anesthesia. Intravenous conscious sedation with Versed and fentanyl was utilized to keep the patient comfortable. A #10 blade was used to sharply incise t he skin. Electrocautery and local pressure were used for hemostasis. Sharp and blunt dissection we re used to expose the original pacemaker pocket. The device was removed from the pocket. The atria l lead serial number was checked. The right atrial lead was a [employer], serial number [id number]. P-waves were measured at 3.6 V. The threshold was found to be 0.4 at 0.8 milliseconds at 0.8 V with a lead impedance of 468, and the P-wave amplitude was 3.6 mV. The ventricular lead serial num yadi was checked. It was a Biotronik PX53/15-BP, serial number [id number]. The RV was able to sense v entricular activity at 4.8 mV, found to have a threshold of 0.4 milliseconds at 0.8 V. Lead impedan ce was 565 ohms, both of which were stable. The atrial lead serial number was checked and placed in the upper pole lead housing of the new device, set screw firmly applied. The procedure was repeate d for the ventricular lead, documenting both atrial and ventricular pacing intermittently. The pock et was thoroughly flushed and checked for bleeding. An antibiotic-soaked gauze was removed from the pocket. The device was sutured in place with 0 silk. The subcutaneous layer was closed with a 3-l daniel repair with 2-0 Vicryl vertical mattress sutures, followed by 3-0 Vicryl horizontal mattress vazquez tures and a 4-0 Monocryl subcuticular stitch. Excellent wound edge apposition and hemostasis were d ocumented. The patient tolerated the procedure well, returned to the post cath recovery unit in goo d and stable condition. The patient will be discharged to home after she is able to ambulate and ta ke p.o. without assistance. /[id number]/MODL
== END 2016-10-04 13:30 | disposition home or self-care (01) ==
LOC: FCATH 07:43
PROVIDERS: ATTEND Internal Medicine Cardiovascular Disease
PROC: 0JH606Z Insertion of Pacemaker, Dual Chamber into Chest Subcutaneous Tissue and Fascia, Open Approach (ICD-10-PCS; principal; 2016-10-04)
PROC: 0JPT0PZ Removal of Cardiac Rhythm Related Device from Trunk Subcutaneous Tissue and Fascia, Open Approach (ICD-10-PCS; principal; 2016-10-04)
DX: Z45.018 Encounter for adjustment and management of other part of cardiac pacemaker (principal); I48.91 Unspecified atrial fibrillation; I10 Essential (primary) hypertension
CPT/HCPCS: C1785; J0690; J2250; J3010

== ENCOUNTER 2016-10-05 23:34 | Emergency (ER) | payer OTHER ==
[2016-10-05 23:39] VITALS: BP 151/79; PULSE 84; RESP 16; TEMP 98.4; O2SAT 94
--- NOTE | 2016-10-05 23:58 | EDPHY ---
H & P Time Seen by Provider: 10/05/16 23:46 HPI/ROS: CHIEF COMPLAINT: dressing change HISTORY OF PRESENT ILLNESS: 66-year-old female presents to the emergency department requesting a dressing change from her pacemaker that was replaced yesterday. Patient reports she has an allergy to the Tegaderm and her skin is burning and itching under this dressing. She denies fevers or chills, no difficulty breathing, throat swelling, tongue swelling. She had denies any other complaints. Smoking Status: Never smoked Physical Exam: GEN: Awake, alert, oriented, no acute distress RESP: nl resp effort MSK: Normal appearing SKIN: Mild erythema under Tegaderm dressing over left side of chest, no drainage, no fluctuance Constitutional: Initial Vital Signs Temperature (C) 36.9 C 10/05/16 23:35 Heart Rate 84 10/05/16 23:35 Respiratory Rate 16 10/05/16 23:35 Blood Pressure 151/79 H 10/05/16 23:35 O2 Sat (%) 94 10/05/16 23:35 O2 Delivery Mode Room Air Allergies/Adverse Reactions: No Allergies [NKDA] Allergy (Unknown, Verified 09/04/14 22:17) Unknown Home Medications: Medication Instructions Recorded ALPRAZolam [Xanax 0.5 MG (*)] 0.5 - 1 mg PO DAILY PRN 07/12/16 HYDROcodone/APAP 10/325 [[place] 1 tab PO Q6 PRN 07/12/16 10/325 (*)] Hydrochlorothiazide [HCTZ (*)] 25 mg PO DAILY PRN 07/12/16 Irbesartan [Avapro 300 mg] 300 mg PO DAILY 07/12/16 oxyCODONE HCL [Oxycontin] 20 mg PO Q12H PRN 07/12/16 Isosorbide Mononitrate [Isosorbide 20 mg PO DAILY #30 tab 07/13/16 Mononitrate 20 mg (*)] MDM/Departure - MDM Procedures: Sterile dressing kept in place, just tegaderm removed, hypoallergenic tape placed. - Depart Disposition: Home, Routine, Self-Care Clinical Impression: Encounter for change of dressing Condition: Good Instructions: Wound Healing and Your Diet (ED) Additional Instructions: Keep dressing in place until your follow up appointment with your surgeon. Take 25mg of benadryl every 8 hours as needed for itching. Take 400mg of ibuprofen as needed for the burning pain. Keep your dressing clean and dry, this new dressing is not water proof. Referrals: Ronen Anderson DO [Primary Care Provider] - As per Instructions
== END 2016-10-06 00:04 | disposition home or self-care (01) ==
DX: Z48.01 Encounter for change or removal of surgical wound dressing (principal)

== ENCOUNTER 2017-01-11 10:20 | Day surgery (SDC) | payer OTHER ==
[2017-01-11] MEDS ORDERED: LIDOCAINE 1% 2 ML INJ ONE (10:30)
[2017-01-11] MEDS ORDERED: LR 1,000 ML IV ONE (10:46)
[2017-01-11] MEDS ORDERED: LIDOCAINE 1% 2 ML INJ ID PRN (10:46)
--- NOTE | 2017-01-11 11:39 | PDANEPAE ---
ANE History of Present Illness EGD colonoscopy ANE Past Medical History - Cardiovascular History Hx Hypertension: Yes Hx Arrhythmias: Yes Hx Chest Pain: No Hx Coronary Artery / Peripheral Vascular Disease: No Hx CHF / Valvular Disease: Yes Hx Palpitations: Yes Cardiovascular History Comment: htn. paf. sss- pacer placed 07/04/2014. hx of sinus arrest. hx of chf - Pulmonary History Hx COPD: Yes Hx Asthma/Reactive Airway Disease: No Hx Recent Upper Respiratory Infection: No Hx Oxygen in Use at Home: Yes O2 in Use at Home (L/minute): occ uses o2 at night Hx Sleep Apnea: Yes Sleep Apnea Screening Result - Last Documented: Positive Pulmonary History Comment: preet positive uses o2 occassional. uses advair occassionally - Neurologic History Hx Cerebrovascular Accident: No Hx Seizures: No Hx Dementia: No - Endocrine History Hx Diabetes: No - Renal History Hx Renal Disorders: No - Liver History Hx Hepatic Disorders: No - Neurological & Psychiatric Hx Hx Neurological and Psychiatric Disorders: Yes Neurological / Psychiatric History Comment: anxiety uses xanax as needed - Cancer History Hx Cancer: No - Congenital Disorder History Hx Congenital Disorders: No - GI History Hx Gastrointestinal Disorders: Yes Gastrointestinal History Comment: recent blood in stool. change in bowel habits - Other Health History Other Health History: wears glasses. wears bilateral hearing aides. upper denture. no teeth to bottom teeth. 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 casey. hysterectomy. bilateral ear surgery. 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[employer] Mobility - Onvelop Pacemaker Model: ELUNA 8 DR-T Pacemaker Mode: DDD-CLS Pacemaker Set Rate: 70 Date Pacemaker Last Checked: 12/06/16 ANE Patient History - Allergies Allergies/Adverse Reactions: No Allergies [NKDA] Allergy (Unknown, Verified 01/04/17 11:21) Unknown - Home Medications Home medications: home medication list seen and reviewed Home Medications: HYDROcodone/APAP 10/325 [[place] 10/325 (*)] 07/12/16 [Last Taken Unknown] Hydrochlorothiazide [HCTZ (*)] 07/12/16 [Last Taken 01/09/17] Irbesartan [Avapro 300 mg] 07/12/16 [Last Taken 01/11/17] oxyCODONE HCL [Oxycontin] 07/12/16 [Last Taken 01/10/17] Cymbalta 01/04/17 [Last Taken 01/04/17] - NPO status NPO Status: no food or drink >8 hours NPO Since - Liquids (Date): 01/11/17 NPO Since - Liquids (Time): 06:30 NPO Since - Solids (Date): 01/10/17 NPO Since - Solids (Time): 09:00 - Smoking Hx Smoking Status: Never smoked - Family Anes Hx Family Hx Anesthesia Complications: none ANE Labs/Vital Signs - Vital Signs Blood Pressure: 155/89 Heart Rate: 62 Respiratory Rate: 14 O2 Sat (%): 93 Height: 152.4 cm Weight: 73.936 kg ANE Physical Exam - Airway Neck exam: FROM Mallampati Score: Class 3 Mouth exam: dentures - Pulmonary Pulmonary: no respiratory distress - Cardiovascular Cardiovascular: regular rate and rhythym - ASA Status ASA Status: III ANE Anesthesia Plan Total IV Anesthesia: Yes
--- NOTE | 2017-01-11 11:42 | PDGENHP ---
History & Physical Chief Complaint: Blood in stool, Diarrhea History of Present Illness: Intermittent bleeding in her stool. Abdominal pain, generalized and RUQ. Episodic diarrhea. FH of colon cancer in multiple 1st and 2nd degree relatives Pertinent Past, Social, Family History: FH Colon cancer. Atrial fibrillation with ablation. IBS-Diarrhea Relevant Physical Exam: NAD. No JVD. CTA B/L. RRR. No m/r/g. No edema. ABD soft. NABS. NT/ND. No mass. No ascites. Cardiorespiratory Assessment: ASA III. EGD. Colonoscopy. MAC anesthesia
[2017-01-11] MEDS ORDERED: LIDOCAINE 2% 100 MG/5 ML SYR ONE (11:48)
[2017-01-11] MEDS ORDERED: PROPOFOL/EMULSION 500 MG/50 ML BOTTLE IV ONE (11:48)
--- NOTE | 2017-01-11 12:00 | GIREPORT ---
[facility] - Endoscopy Department Patient Name: Latoya Mccabe Procedure Date: 01/11/2017 11:53 AM Patient Type: Outpatient Attending MD/ ER Physician: Jerry Iverson MD Procedure: Upper GI endoscopy Indications: Epigastric abdominal pain, Abdominal pain in the right upper quadrant, Hematochezia Providers: Jerry Iverson MD Medicines: Propofol per Anesthesia Complications: No immediate complications. Description of Procedure: After obtaining informed consent, the endoscope was passed under direct vision. Throughout the procedure, the patient's blood pressure, pulse, and oxygen saturations were monitored continuously. The Endoscope was intro duced through the mouth, and advanced to the second part of duodenum. The [facility] er GI endoscopy was accomplished without difficulty. The patient tolerated th e procedure well. Findings: The esophagus was normal. The stomach was normal. The examined duodenum was normal. Estimated Blood Loss: Estimated blood loss: none. Post Op Diagnosis: - Normal esophagus. - Normal stomach. - Normal examined duodenum. - No specimens collected. - No cause for bleeding or pain was found. Recommendation: - Continue present medications. - Colonoscopy today. - Return to physician case assistant as previously scheduled. - Thank you for allowing me to be involved in the care of your patient. Jerry Iverson MD Jerry Iverson MD 01/11/2017 12:00:13 PM This report has been signed electronicallyDavid MD Zayra Number of Addenda: 0 Note Initiated On: 01/11/2017 11:53 AM [email or web address]
--- NOTE | 2017-01-11 12:25 | GIREPORT ---
[facility] - Endoscopy Department Patient Name: Latoya Mccabe Procedure Date: 01/11/2017 11:58 AM Patient Type: Outpatient Attending MD/ ER Physician: Jerry Iverson MD Procedure: Colonoscopy Indications: Hematochezia, Change in bowel habits Providers: Jerry Iverson MD Medicines: Propofol per Anesthesia Complications: No immediate complications. Description of Procedure: After obtaining informed consent, the scope was passed under direct vis ion. Throughout the procedure, the patient's blood pressure, pulse, and oxyg en saturations were monitored continuously. The Colonoscope with irrigatio n channel was introduced through the anus and advanced to the cecum, identified by appendiceal orifice and ileocecal valve. The colonoscopy was performed without difficulty. The patient tolerated the procedure well. The quality of the bowel preparation was excellent. The ileocecal valve, appendiceal orifice, and rectum were photographed. Findings: The perianal and digital rectal examinations were normal. Pertinent negatives include normal sphincter tone and no palpable rectal lesions. The entire examined colon appeared normal. Estimated Blood Loss: Estimated blood loss: none. Post Op Diagnosis: - The entire examined colon is normal. - No specimens collected. - No cause for hematochezia found. This may be hemorrhoidal in nature. Recommendation: - Repeat colonoscopy in 5 years for screening purposes due to a family history of colon cancer in a 1st degree relative. - Resume previous diet. - Continue present medications. - Patient has a contact number available for emergencies. The signs and symptoms of potential delayed complications were discussed with the pat ient. Return to normal activities tomorrow. Written discharge instructions we re provided to the patient. - Thank you for allowing me to be involved in the care of your patient. Attending Participation: I personally performed the entire procedure. Jerry Iverson MD Jerry Iverson MD 01/11/2017 12:24:46 PM This report has been signed electronicallyDavid MD Zayra Number of Addenda: 0 Note Initiated On: 01/11/2017 11:58 AM Total Procedure Duration Time 0 hours 17 minutes 24 seconds [email or web address]
[2017-01-11 12:50] VITALS: TEMP 97.5
[2017-01-11 13:18] VITALS: PULSE 76; RESP 18
[2017-01-11 13:41] VITALS: BP 143/68; O2SAT 93
== END 2017-01-11 13:51 | disposition home or self-care (01) ==
LOC: FSGY 10:20
PROVIDERS: ATTEND Internal Medicine Gastroenterology
PROC: 0DJD8ZZ Inspection of Lower Intestinal Tract, Via Natural or Artificial Opening Endoscopic (ICD-10-PCS; principal; 2017-01-11 12:00)
PROC: 0DJ08ZZ Inspection of Upper Intestinal Tract, Via Natural or Artificial Opening Endoscopic (ICD-10-PCS; 2017-01-11 12:00)
DX: K92.1 Melena (principal); R19.7 Diarrhea, unspecified; R10.11 Right upper quadrant pain; Z80.0 Family history of malignant neoplasm of digestive organs
CPT/HCPCS: J2001; J2704

== ENCOUNTER 2017-12-05 15:13 | Emergency (ER) | payer OTHER ==
--- NOTE | 2017-12-05 15:40 | EDPHY ---
HPI/HX/ROS/PE/MDM Narrative: CHIEF COMPLAINT: Chest pain HPI: The patient is a 67 y/o female with a history of atrial fibrillation, fibromyalgia, GERD, and atypical chest pain complaining of recurrent chest pain episodes over the last week. She describes left-sided chest pressure and tightness that is occasionally sharp and sometimes radiates through to her back. She has a constant dull ache along the right side of her neck and is fatigued, but attributed these symptoms more to her fibromyalgia. She cannot identify any obvious precipitating or aggravating factors and cannot definitively say if breathing affects pain. She has difficulty determining how long the worst symptoms last when present. She thinks she last saw her political science research assistant sometime this summer. REVIEW OF SYSTEMS: A comprehensive 10 system review of systems is otherwise negative aside from elements mentioned in the history of present illness. PMH: atrial fibrillation, fibromyalgia, GERD, and atypical chest pain SOCIAL HISTORY: Lives in [place], single, retired. PHYSICAL EXAM: General:Patient is alert, in no acute distress. ENT:Eyes are normal to inspection. ENT inspection normal. Neck: Normal inspection. Full range of motion. Respiratory:No respiratory distress. Breath sounds normal bilaterally. Cardiovascular: Regular rate and rhythm. Strong peripheral pulses. Normal cap refill. Abdomen:The abdomen is nontender to palpation. There are no peritoneal signs. Back: Normal to inspection. No tenderness to palpation. Skin: Normal color. No rash. Warm and dry. Extremities: Normal appearance. Full range of motion. Neuro: Oriented x3. Normal motor function. Normal sensory function. ED Course: This is a 67 y/o female with a history of atrial fibrillation, chronic pain, and atypical chest pain who presents with a 1-week history of recurrent episodes of chest pain. She is currently asymptomatic and has a normal exam. Her story is a bit vague, but not immediately concerning for ACS. Plan for standard cardiac work up including IV, labs, EKG, chest x-ray. The 12 lead EKG was interpreted by myself. See hard copy and/or "tracemaster" electronic copy for interpretation. Chest x-ray: nothing acute Labs including troponin are unremarkable. 1650: Reassessed patient and discussed findings. I've found no immediate concerning causes for her chest pain. Offered admission for further provocative work up, which she declined. She would like to be discharged home at this time. Recommended following up with her political science research assistant this week. Return precautions discussed. She is comfortable with this plan. - Data Points Imaging Results: Imaging Impressions Chest X-Ray 12/05/17 15:32 Impression: No acute findings in the chest. Imaging: I viewed and interpreted images myself Laboratory Results: Laboratory Results 12/05/17 15:30 12/05/17 15:30 12/05/17 12/05/17 12/05/17 15:38 15:30 15:30 WBC 5.57 10^3/uL 10^3/uL (3.80-9.50) RBC 4.83 10^6/uL 10^6/uL (4.18-5.33) Hgb 14.8 g/dL g/dL (12.6-16.3) Hct 44.1 % % (38.0-47.0) MCV 91.3 fL fL (81.5-99.8) MCH 30.6 pg pg (27.9-34.1) MCHC 33.6 g/dL g/dL (32.4-36.7) RDW 13.4 % % (11.5-15.2) Plt Count 162 10^3/uL 10^3/uL (150-400) MPV 9.5 fL fL (8.7-11.7) Neut % (Auto) 58.1 % % (39.3-74.2) Lymph % (Auto) 32.1 % % (15.0-45.0) [place] % (Auto) 8.1 % % (4.5-13.0) Eos % (Auto) 1.1 % % (0.6-7.6) Baso % (Auto) 0.4 % % (0.3-1.7) Nucleat RBC Rel Count 0.0 % % (0.0-0.2) Absolute Neuts (auto) 3.24 10^3/uL 10^3/uL (1.70-6.50) Absolute Lymphs (auto) 1.79 10^3/uL 10^3/uL (1.00-3.00) Absolute Monos (auto) 0.45 10^3/uL 10^3/uL (0.30-0.80) Absolute Eos (auto) 0.06 10^3/uL 10^3/uL (0.03-0.40) Absolute Basos (auto) 0.02 10^3/uL 10^3/uL (0.02-0.10) Absolute Nucleated RBC 0.00 10^3/uL 10^3/uL (0-0.01) Immature Gran % 0.2 % % (0.0-1.1) Immature Gran # 0.01 10^3/uL 10^3/uL (0.00-0.10) Sodium 140 mEq/L mEq/L (135-145) Potassium 3.7 mEq/L mEq/L (3.3-5.0) Chloride 108 mEq/L mEq/L (97-110) Carbon Dioxide 26 mEq/l mEq/l (22-31) Anion Gap 6 mEq/L mEq/L (6-14) BUN 16 mg/dL mg/dL (7-23) Creatinine 0.6 mg/dL mg/dL (0.6-1.0) Estimated GFR > 60 Glucose 102 mg/dL H mg/dL (70-100) Calcium 9.1 mg/dL mg/dL (8.5-10.4) POC Troponin I 0.00 ng/mL ng/mL (0.00-0.08) Point of Care Test Results: Chemistry 12/05/17 15:38 POC Troponin I 0.00 ng/mL ng/mL (0.00-0.08) General Time Seen by Provider: 12/05/17 15:17 Initial Vital Signs: Initial Vital Signs Temperature (C) 36.9 C 12/05/17 15:18 Heart Rate 82 12/05/17 15:18 Respiratory Rate 19 12/05/17 15:18 Blood Pressure 163/80 H 12/05/17 15:18 O2 Sat (%) 95 12/05/17 15:18 O2 Delivery Mode Room Air Allergies/Adverse Reactions: No Allergies [NKDA] Allergy (Unknown, Verified 12/05/17 15:17) Unknown Home Medications: Medication Instructions Recorded Hydrochlorothiazide [HCTZ (*)] 07/12/16 Irbesartan [Avapro 300 mg] 07/12/16 Cymbalta 01/04/17 Departure - Departure Disposition: Home, Routine, Self-Care Clinical Impression: Chest pain Qualifiers: Chest pain type: other chest pain Qualified Code(s): R07.89 - Other chest pain Condition: Good Instructions: Chest Pain (ED) Additional Instructions: Follow up with your political science research assistant this week. I recommend calling first thing tomorrow morning to schedule this. Return to the ED for any worsening of condition. Referrals: Ronen Anderson DO [Primary Care Provider] - As per Instructions Ronen Lee MD [Medical Doctor] - As per Instructions Report Scribed for: Jerry Pitts Report Scribed by: Olga Lidia Paiz Date of Report: 12/05/17 Time of Report: 15:40 Physician Review and Approval Statement: Portions of this note were transcribed by an ED scribe. I personally performed the history, physical exam, and medical decision making; and confirm the accuracy of the information in the transcribed note.
[2017-12-05 15:45] LABS: PLATELET COUNT 162 10^3/uL (150-400)
[2017-12-05 16:34] VITALS: BP 157/87
--- NOTE | 2017-12-12 21:27 | CPEKG ---
Test Reason : OPEN Blood Pressure : / mmHG Vent. Rate : 091 BPM Atrial Rate : 093 BPM P-R Int : 121 ms QRS Dur : 089 ms QT Int : 375 ms P-R-T Axes : 040 -09 056 degrees QTc Int : 462 ms Atrial-paced complexes LVH with secondary repolarization abnormality Confirmed by Jerry Pitts ([id number]) on 12/12/2017 9:26:30 PM Referred By: Confirmed By:Jerry Pitts
== END 2017-12-05 17:00 | disposition home or self-care (01) ==
DX: R07.89 Other chest pain (principal); K21.9 Gastro-esophageal reflux disease without esophagitis; I48.91 Unspecified atrial fibrillation
CPT/HCPCS: 84484-PO